=== PATIENT | female | born 1935 | race Caucasian/White ===

== ENCOUNTER 2017-04-17 10:57 | Inpatient (IN) | payer MEDICARE, BC ==
[2017-04-17] MEDS ORDERED: ONDANSETRON HCL 4 MG/2 ML SOL ONE (11:14)
[2017-04-17] MEDS ORDERED: PANTOPRAZOLE SODIUM 40 MG/10 ML PDS ONE ×3 (11:14→21:18)
[2017-04-17] MEDS ORDERED: LIDOCAINE HCL 2% (VISCOUS) 20 ML SOL ONE (11:14)
[2017-04-17] MEDS ORDERED: ALUMINUM/MAGNESIUM 30 ML SUS ONE (11:14)
[2017-04-17] MEDS ORDERED: ONDANSETRON HCL 4 MG/2 ML 4 MG in SODIUM CHLORIDE 0.9% 100 ML 100 ML IV ONE (11:15)
[2017-04-17] MEDS: SODIUM CHLORIDE 0.9% 100 ML 80 ML with PANTOPRAZOLE SODIUM 40 MG VIAL 80 MG IV SCH ×2 (11:25→21:24)
[2017-04-17] MEDS ORDERED: SODIUM CHLORIDE 0.9% 1000ML 1,000 ML IV SCH ×2 (11:30→16:15)
[2017-04-17 11:36] LABS: BASOPHILS % (AUTO) 0 % (0-3); EOSINOPHILS % (AUTO) 1 % (0-9); HEMATOCRIT 40 % (35-47); MONOCYTES % (AUTO) 5.3 % (0-12); NEUTROPHILS % (AUTO) 79.1 % (37-80)
[2017-04-17 11:42] LABS: MEAN CORPUSCULAR VOLUME 77 fL (81-99)
[2017-04-17] MEDS ORDERED: ONDANSETRON HCL 4 MG/2 ML SOL IV ONE (11:45)
[2017-04-17] MEDS ORDERED: LIDOCAINE HCL 2% (VISCOUS) 20 ML SOL MT ONE (11:45)
[2017-04-17] MEDS ORDERED: ALUMINUM/MAGNESIUM 30 ML SUS PO ONE (11:45)
[2017-04-17 11:55] LABS: ALBUMIN 3.8 gm/dl (3.4-5.0); ALT 26 IU/L (14-63); BILIRUBIN,DIRECT 0.1 mg/dl (0.0-0.2); CALCIUM 8.8 mg/dl (8.5-10.1); GLOM FILT RATE 49 mL/min (>60); POTASSIUM 4.4 mMol/L (3.5-5.1); SODIUM 140 mMol/L (136-145)
[2017-04-17] MEDS ORDERED: ONDANSETRON HCL 4 MG/2 ML SOL IV PRN (16:05)
[2017-04-17] MEDS: DEXTROSE/SALINE 0.45%/KCL10MEQ 1,000 ML/1,000 ML SOL IV SCH (19:50)
[2017-04-17] MEDS ORDERED: PATIENT EDUCATION 1 MISC PRN (21:06)
[2017-04-17] MEDS ORDERED: SODIUM CHLORIDE 0.9% 100 ML 100 ML IV ONE (21:19)
[2017-04-18] MEDS: DEXTROSE/SALINE 0.45%/KCL10MEQ 1,000 ML/1,000 ML SOL IV SCH ×2 (05:55→16:52)
[2017-04-18 07:38] LABS: ALBUMIN 3.2 gm/dl (3.4-5.0); CALCIUM 8.2 mg/dl (8.5-10.1)
[2017-04-18 07:55] LABS: BASOPHILS % (AUTO) 0 % (0-3); EOSINOPHILS % (AUTO) 2 % (0-9); HEMATOCRIT 39 % (35-47); MEAN CORPUSCULAR VOLUME 82 fL (81-99); NEUTROPHILS % (AUTO) 70.7 % (37-80)
[2017-04-18] MEDS: SODIUM CHLORIDE 0.9% 100 ML 80 ML with PANTOPRAZOLE SODIUM 40 MG VIAL 80 MG IV SCH (08:51)
[2017-04-18] MEDS: SODIUM CHLORIDE 0.9% FLUSH 10 ML SOL IV PRN (09:02)
[2017-04-18] MEDS: PANTOPRAZOLE SODIUM 40 MG/10 ML PDS IV SCH (09:02)
[2017-04-18 17:08] VITALS: RESP 18
[2017-04-18] MEDS ORDERED: DEXTROSE/SALINE 0.45%/KCL10MEQ 1,000 ML/1,000 ML SOL IV SCH (17:26)
[2017-04-19 07:30] LABS: BASOPHILS % (AUTO) 1 % (0-3); EOSINOPHILS % (AUTO) 6 % (0-9); HEMATOCRIT 40 % (35-47); MEAN CORPUSCULAR HGB CONC 33.1 gm/dl (32.0-36.0); MEAN CORPUSCULAR VOLUME 83 fL (81-99); MONOCYTES % (AUTO) 8.3 % (0-12)
[2017-04-19 07:34] LABS: ALBUMIN 3.2 gm/dl (3.4-5.0); CALCIUM 8.6 mg/dl (8.5-10.1); POTASSIUM 4.2 mMol/L (3.5-5.1)
[2017-04-19 07:58] VITALS: BP 107/71; PULSE 69; TEMP 97.8; O2SAT 95
[2017-04-19] MEDS: PANTOPRAZOLE SODIUM 40 MG/10 ML PDS IV SCH (08:36)
[2017-04-19] MEDS: SODIUM CHLORIDE 0.9% FLUSH 10 ML SOL IV PRN (08:36)
== END 2017-04-19 12:35 | disposition home or self-care (01) | DRG 390 ==
LOC: ED 10:57 → UNDOADMIN 15:09 → ACUTE CARE 15:09
PROVIDERS: ADMIT Family Medicine; ATTEND Family Medicine
PROC: 0DH Gastrointestinal System, Insertion (ICD-10-PCS; principal; 2017-04-17)
DX: K56.50 Intestinal adhesions [bands], unspecified as to partial versus complete obstruction (principal); I48.91 Unspecified atrial fibrillation; Z86.718 Personal history of other venous thrombosis and embolism; K22.70 Barrett's esophagus without dysplasia; Z79.01 Long term (current) use of anticoagulants
CPT/HCPCS: 36415; 71010; 74177; 80048; 80053; 80076; 83880; 84484; 85025; 85610; 93005; 96365; 96366; 96374; 99284; 99285; J2405; Q9967

== ENCOUNTER 2017-08-11 07:17 | Day surgery (SDC) | payer MEDICARE, BC ==
[2017-08-11] MEDS ORDERED: PROPOFOL 500 MG/50 ML EMU IV ONE (07:22)
[2017-08-11] MEDS ORDERED: LIDOCAINE HCL 1% MPF SOL ONE (07:23)
[2017-08-11] MEDS ORDERED: FENTANYL 100MCG/2ML SOL ONE (08:33)
[2017-08-11] MEDS ORDERED: PROPOFOL 10 MG/ML EMU IV ONE (09:36)
[2017-08-11 10:22] VITALS: TEMP 97.9
[2017-08-11 10:30] VITALS: RESP 20
[2017-08-11 10:50] VITALS: BP 133/87; PULSE 69; O2SAT 98
== END 2017-08-11 11:25 | disposition home or self-care (01) | DRG 392 ==
LOC: SURG 07:17
PROVIDERS: ATTEND Internal Medicine Gastroenterology
DX: K52.9 Noninfective gastroenteritis and colitis, unspecified (principal); D12.0 Benign neoplasm of cecum; K21.9 Gastro-esophageal reflux disease without esophagitis; Z86.010 Personal history of colon polyps; Z87.19 Personal history of other diseases of the digestive system; K22.70 Barrett's esophagus without dysplasia; K44.9 Diaphragmatic hernia without obstruction or gangrene; K63.5 Polyp of colon; K57.30 Diverticulosis of large intestine without perforation or abscess without bleeding; K64.8 Other hemorrhoids
CPT/HCPCS: J3010; J2001; J2704

== ENCOUNTER 2017-10-28 20:44 | Emergency (ER) | payer MEDICARE, BC ==
[2017-10-28 21:06] VITALS: RESP 20
[2017-10-28 22:28] LABS: INR 1.75 (0.86-1.12)
[2017-10-28 22:33] VITALS: BP 100/75; PULSE 60; TEMP 98.8; O2SAT 95
== END 2017-10-28 22:47 | disposition home or self-care (01) | DRG 556 ==
LOC: ED 20:44
DX: M79.652 Pain in left thigh (principal); M79.605 Pain in left leg
CPT/HCPCS: 36415; 85610; 99282